=== PATIENT | male | born 1990 | race Caucasian/White ===

== ENCOUNTER 2017-12-09 16:41 | Emergency (ER) | payer OTHER ==
[~2017-12-09] VITALS: Ht 170.2 cm; Wt 90.4 kg
[2017-12-09 16:44] VITALS: TEMP 36.6
[2017-12-09] MEDS ORDERED: VNTHFA/IN INH (16:58)
[2017-12-09] MEDS ORDERED: INSPMPRG (16:58)
[2017-12-09] MEDS ORDERED: ALBUT/IPRATROP 3MG/0.5MG NEB 3 ML VIAL INH STA (17:08)
[2017-12-09 17:15] VITALS: Ht 170.2 cm; Wt 90.4 kg
[2017-12-09 17:38] LABS: BASO % 0.6 %; BASO ABS # 0.04 K/uL (0-0.2); EOS % 6.9 %; EOS ABS # 0.43 K/uL (0-0.5); HEMATOCRIT 47.6 % (42-52); HEMOGLOBIN 16.4 g/dL (14.0-18.0); IG# 0.01 K/uL (0.00-0.02); LYMPH % 33.8 %; LYMPH ABS # 2.11 K/uL (1.2-3.4); MEAN CELL VOLUME 94.4 fL (80-100); MEAN CORPUSCULAR HEMOGLOBIN 32.5 pg (25-34); MEAN CORPUSCULAR HGB CONC 34.5 g/dl (32-36); MEAN PLATELET VOLUME 10.2 fL (7.4-10.4); MONO % 6.9 %; MONO ABS # 0.43 K/uL (0.11-0.59); NEUT % 51.6 %; NEUT ABS # 3.23 K/uL (1.4-6.5); PLATELET COUNT 261 K/uL (130-400); RED CELL DISTRIBUTION WIDTH CV 12.6 % (11.5-14.5); RED CELL DISTRIBUTION WIDTH SD 43.4 fL (36.4-46.3); WHITE BLOOD COUNT 6.25 K/uL (4.8-10.8)
--- NOTE | 2017-12-09 17:41 | EMERGENCY ROOM VISIT NOTE ---
History First contact with patient: 16:56 Chief Complaint: RESPIRATORY PROBLEMS Stated Complaint: LABORED BREATHING History of Present Illness The patient is a 27 year old male who presents to the Emergency Room with complaints of labored breathing off and on for the past 2 days, he states "it feels like I can't take a deep breath and my lungs are filling up all the way." He states his symptoms have most often occurred at rest while he is sitting in class, he denies any dyspnea with exertion, denies chest pain, cough, fever/ chills, palpitations or racing heart, leg pain or swelling, syncope, headaches or vision changes. He states a few times when this has happened he starts breathing very fast, and he has had some tingling in his hands and feet with this. He has a history of type 1 diabetes controlled with insulin pump, states his sugars have been good, and no problems with the pump. He also reports a history of asthma, states he has not tried his inhaler for his symptoms, but does not feel like he has been wheezing. He denies any other URI symptoms. He does admit that he has been having increased amounts of stress, and feels like this could be anxiety. He reports similar episodes previously that were felt to be anxiety, he states this seems the same. He came to the emergency department today because his mom wanted him to be checked. Review of Systems A complete 10 point review of systems was reviewed with the patient with pertinent positives and negatives as per history of present illness. All else were negative. Past Medical/Surgical History Type 1 diabetes mellitus, asthma Social History Smoking Status: Never Smoker Alcohol Use: occasionally Drug Use: none Occupation Status: [employer] student Current/Historical Medications Scheduled Insulin Human Regular (Insulin Regular Pump ), 1 EA N/A UD Scheduled PRN Albuterol Hfa (Ventolin Hfa), 2-4 PUFFS INH Q6H PRN for Shortness of Breath Allergies NKA Physical Exam Vital Signs Date Time Temp Pulse Resp B/P (MAP) Pulse Ox O2 Delivery O2 Flow Rate FiO2 12/09/17 19:51 87 16 128/67 97 Room Air 12/09/17 18:53 81 12/09/17 18:15 100 Room Air 12/09/17 18:14 71 16 133/75 100 Room Air 12/09/17 16:48 96 Room Air 12/09/17 16:44 36.6 75 18 124/78 96 Room Air Physical Exam CONSTITUTIONAL: Pleasant and cooperative. No acute distress. Well hydrated and well nourished. HEENT: Normocephalic, atraumatic. Pupils equal, round and reactive to light, EOMI. TMs normal. Pharynx normal. Moist mucous membranes. NECK: Supple, full active range of motion without discomfort. No cervical adenopathy. RESPIRATORY: Clear to auscultation bilaterally with no wheezing, crackles, rhonchi or stridor. Slightly diminished bases bilaterally. Equal expansion bilaterally. CARDIOVASCULAR: Regular rate and rhythm with no murmurs, rubs or gallops. Normal peripheral perfusion. No edema. GASTROINTESTINAL: Soft, nontender, nondistended. No palpable masses or HSM. Bowel sounds present in all quadrants. MUSCULOSKELETAL: Full range of motion of all joints without discomfort. No calf tenderness or swelling noted on exam. INTEGUMENTARY: No rash or other significant dermatologic conditions noted. NEUROLOGIC: Alert and oriented X 4 with normal affect. Cranial nerves II-XII grossly intact. No focal neurologic deficits noted. Normal speech. Normal gait observed. Medical Decision & Procedures ER Provider Diagnostic Interpretation: [~ rep ct add3]] CHEST 2 VIEWS ROUTINE CLINICAL HISTORY: EVALUATE RESPIRATORY DISTRESS.DYSPNEA dyspnea COMPARISON STUDY: No previous studies for comparison. FINDINGS: The bones soft tissues and hemidiaphragms are normal. The cardiomediastinal silhouette is normal. The lungs are clear. The pulmonary vasculature is normal. IMPRESSION: Negative chest. Laboratory Results 12/09/17 17:23 Red Blood Count 5.04, Mean Corpuscular Volume 94.4, Mean Corpuscular Hemoglobin 32.5, Mean Corpuscular Hemoglobin Concent 34.5, Mean Platelet Volume 10.2, Neutrophils (%) (Auto) 51.6, Lymphocytes (%) (Auto) 33.8, Monocytes (%) (Auto) 6.9, Eosinophils (%) (Auto) 6.9, Basophils (%) (Auto) 0.6, Neutrophils # (Auto) 3.23, Lymphocytes # (Auto) 2.11, Monocytes # (Auto) 0.43, Eosinophils # (Auto) 0.43, Basophils # (Auto) 0.04 12/09/17 17:23 Test 12/09/17 17:21 12/09/17 17:23 12/09/17 18:56 Bedside Glucose 83 mg/dl (70-99) White Blood Count 6.25 K/uL (4.8-10.8) Red Blood Count 5.04 M/uL (4.7-6.1) Hemoglobin 16.4 g/dL (14.0-18.0) Hematocrit 47.6 % (42-52) Mean Corpuscular Volume 94.4 fL (80-100) Mean Corpuscular Hemoglobin 32.5 pg (25-34) Mean Corpuscular Hemoglobin Concent 34.5 g/dl (32-36) Platelet Count 261 K/uL (130-400) Mean Platelet Volume 10.2 fL (7.4-10.4) Neutrophils (%) (Auto) 51.6 % Lymphocytes (%) (Auto) 33.8 % Monocytes (%) (Auto) 6.9 % Eosinophils (%) (Auto) 6.9 % Basophils (%) (Auto) 0.6 % Neutrophils # (Auto) 3.23 K/uL (1.4-6.5) Lymphocytes # (Auto) 2.11 K/uL (1.2-3.4) Monocytes # (Auto) 0.43 K/uL (0.11-0.59) Eosinophils # (Auto) 0.43 K/uL (0-0.5) Basophils # (Auto) 0.04 K/uL (0-0.2) RDW Standard Deviation 43.4 fL (36.4-46.3) RDW Coefficient of Variation 12.6 % (11.5-14.5) Immature Granulocyte % (Auto) 0.2 % Immature Granulocyte # (Auto) 0.01 K/uL (0.00-0.02) Anion Gap 6.0 mmol/L (3-11) Est Creatinine Clear Calc Drug Dose 122.3 ml/min Estimated GFR () 122.2 Estimated GFR (Non- 105.4 BUN/Creatinine Ratio 13.8 (10-20) Calcium Level 9.1 mg/dl (8.5-10.1) Urine Color DK YELLOW Urine Appearance CLEAR (CLEAR) Urine pH 5.5 (4.5-7.5) Urine Specific [place] 1.029 (1.000-1.030) Urine Protein NEG (NEG) Urine Glucose (UA) TRACE (NEG) Urine Ketones 3+ (NEG) Urine Occult Blood NEG (NEG) Urine Nitrite NEG (NEG) Urine Bilirubin NEG (NEG) Urine Urobilinogen NEG (NEG) Urine Leukocyte Esterase NEG (NEG) Medications Administered Medications (Trade) Dose Ordered Sig/Elpidio Route Start Time Stop Time Status Last Admin Dose Admin Albuterol/ Ipratropium (Duoneb) 3 ml NOW STAT INH 12/09/17 17:08 12/09/17 17:10 DC 12/09/17 18:03 3 ML ECG Indication: SOB/dyspnea Rate (beats per minute): 86 Rhythm: normal sinus Findings: no acute ischemic change, no ectopy Comparison ECG Date: no prior available Medical Decision CC: Patient presenting with complaint of labored breathing Interpretation of Labs: No leukocytosis, no anemia, no significant electrolyte abnormality, normal renal function. UA shows ketones, negative for infection. Differential Diagnosis: Includes, but not limited to viral URI, bronchitis, pneumonia, asthma exacerbation, PE, anxiety, dehydration, DKA, among others. Medication Reconciliation: I attest that I have personally reviewed the patient' s current medication list. Vital signs review: I reviewed the patient's vital signs and interpret them as follows: T: Afebrile; BP: Normotensive; HR: Within normal limits; RR: Within normal limits; Pulse Ox: Within normal limits on room air. Blood pressure screening: The patient was found to have normal blood pressure on screening and does not require follow-up for repeat blood pressure check. Summary: Patient was evaluated at bedside, history and physical exam performed. Patient is alert and oriented, in no acute distress, resting calmly in stretcher. Lungs are clear to auscultation, slightly diminished in bases but otherwise normal. Negative PERC rule, I have a low suspicion for PE. Orders were placed at bedside for labs, UA, EKG, chest x-ray to evaluate for cardiopulmonary disease. DuoNeb ordered due to patient's history of asthma. Patient discussed with Dr. George, who agrees with my assessment and plan. Labs reviewed as above, unremarkable. UA does show moderate ketones, however patient's blood sugar is within normal limits, gap is normal. EKG is NSR with no acute changes, normal EKG. Chest x-ray is unremarkable, no pneumonia. Patient reassessed multiple times throughout ED stay, he states he is feeling better overall. He states that he felt a little bit worse after the DuoNeb, it made him feel more anxious. He believes his symptoms are due to anxiety and stress, given his presenting symptoms and and lack of concerning labs or exam findings, I feel anxiety may be the contributing factor as well. I did discuss all results with the patient and plan for discharge, encouraged him to follow closely with his PCP, and gave him strict return precautions should her symptoms worsen, he verbalized understanding. The patient was discharged home in stable condition and ambulatory. Medication Reconcilliation Current Medication List: was personally reviewed by me Blood Pressure Screening Patient's blood pressure: Normal blood pressure Impression Primary Impression: Mild shortness of breath Departure Information Dispostion Home / Self-Care Condition GOOD Referrals Pramod Arias D.O. (PCP) Patient Instructions ED Hyperventilation Syndrome, ED Panic Attack, [facility] Additional Instructions You have been treated in the Emergency Department your shortness of breath. Laboratory results and imaging studies have ruled out any emergent causes for your symptoms which would warrant admission or surgery. Drink plenty of fluids to stay well hydrated. If you start to have your feelings of labored breathing again, concentrate on SLOW deep breaths, to avoid hyperventilation. Please follow-up with your primary care provider in the next few days to be rechecked, especially if your symptoms are persisting. Return to the emergency department if your symptoms worsen, including chest pain , worsening shortness of breath, severe dizziness or passing out, palpitations or racing heart, vomiting or coughing up blood, fevers > 101.5, or any other concerns. School Instructions Return To School: 1 day
--- NOTE | 2017-12-09 17:51 | DIAGNOSTIC IMAGING REPORT ---
CHEST 2 VIEWS ROUTINE CLINICAL HISTORY: EVALUATE RESPIRATORY DISTRESS.DYSPNEA dyspnea COMPARISON STUDY: No previous studies for comparison. FINDINGS: The bones soft tissues and hemidiaphragms are normal. The cardiomediastinal silhouette is normal. The lungs are clear. The pulmonary vasculature is normal. IMPRESSION: Negative chest. The above report was generated using voice recognition software. It may contain grammatical, syntax or spelling errors. Electronically signed by: Jose G Arceo M.D. 12/09/2017 5:50 PM Dictated Date/Time: 12/09/2017 5:49 PM
[2017-12-09 17:55] LABS: CALCIUM 9.1 mg/dl (8.5-10.1); CREATININE 0.99 mg/dl (0.60-1.40); POTASSIUM 3.7 mmol/L (3.5-5.1)
[2017-12-09 18:15] VITALS: O2SAT 100
[2017-12-09 19:51] VITALS: BP 128/67; PULSE 87; O2SAT 97
== END 2017-12-09 19:58 | disposition home or self-care (01) ==
LOC: C.EDB 16:43 → C.EDC 19:58
DX: R06.02 Shortness of breath (principal); E10.9 Type 1 diabetes mellitus without complications; Z96.41 Presence of insulin pump (external) (internal); J45.909 Unspecified asthma, uncomplicated; Z79.4 Long term (current) use of insulin